=== PATIENT | female | born 1975 | race Caucasian/White ===

== ENCOUNTER 2021-03-02 15:15 | Emergency (ER) | payer MEDICAID ==
[~2021-03-02] VITALS: Ht 154.9 cm; Wt 83.5 kg
[~2021-03-02 15:15] MED LIST: ALB0.5UD IH; ARIP30TA7 PO; CLON-528 PO; CYAN1TAB41 PO; FAMO-1 PO; HAL5T PO; IBUP-1984 PO; LEVO75TA57 PO; LITH300C43 PO; NORG1TAB77 PO; OSC500T PO
--- NOTE | 2021-03-02 15:58 | NUR ---
PT DENIES SUICIDIAL IDEATION, REPORTS HEARING VOICES THAT TELL HER "TO START FIRES, BUT I DONT WANT ANOTHER WHALEN FIRE, BUT I GRABBED A CIGARETTE AND I DID MEAN THINGS." SHE IS RAMBLING, TANGENTIAL. SHE DENIES HOMICIDAL IDEATION ALSO. SHE STATES HER VOICES HAVE BEEN WORSE "FOR A FEW DAYS." SHE IS COOPERATIVE, ROCKING BACK AND FORTH IN THE ROOM. BELONGINGS SECURED OUTSIDE ROOM, ALL CLOTHES OFF AND PT CHANGED TO GREEN SCRUBS.
[2021-03-02 16:00] LABS: BASOPHILS # (AUTO) 0.1 X10'3 (0-0.2); BASOPHILS % (AUTO) 1.1 % (0-1); EOSINOPHILS # (AUTO) 0.6 X10'3 (0-0.9); HEMATOCRIT 38.6 % (35.0-45.0); HEMOGLOBIN 12.6 g/dl (12.0-16.0); LYMPHOCYTES # (AUTO) 2.2 X10'3 (1.1-4.8); LYMPHOCYTES % (AUTO) 21.9 % (21-51); MEAN CORPUSCULAR HEMOGLOBIN 28.4 PG (27.0-31.0); MEAN CORPUSCULAR HGB CONC 32.6 g/dL (33.0-36.5); MEAN CORPUSCULAR VOLUME 86.9 FL (78-98); MEAN PLATELET VOLUME 8.5 FL (7.4-10.4); MONOCYTES # (AUTO) 0.6 X10'3 (0-0.9); MONOCYTES % (AUTO) 5.5 % (2-12); NEUTROPHILS # (AUTO) 6.6 X10'3 (1.8-7.7); NEUTROPHILS % (AUTO) 65.5 % (42-75); PLATELET COUNT 287 X10'3 (140-440); RED BLOOD COUNT 4.44 X10'6 (4.20-5.60); WHITE BLOOD COUNT 10.1 X10'3 (4.5-11.0)
[2021-03-02 16:28] LABS: ALANINE AMINOTRANSFERASE 48 U/L (12-78); ALBUMIN 3.8 G/DL (3.4-5.0); ALBUMIN/GLOBULIN RATIO 1.1 (1.1-1.5); ALKALINE PHOSPHATASE 106 IU/L (46-116); ANION GAP 10 (8-16); ASPARTATE AMINO TRANSFERASE 30 U/L (10-37); BILIRUBIN,TOTAL 0.2 MG/DL (0.1-1.0); BLOOD UREA NITROGEN 14 MG/DL (7-18); BUN/CREATININE RATIO 17.7 (6.6-38.0); CALCIUM 9.3 MG/DL (8.5-10.1); CHLORIDE 106 MMOL/L (99-107); CREATININE 0.79 MG/DL (0.40-0.90); ETHANOL < 0.010 GM/DL (0.0-0.010); GLUCOSE 107 MG/DL (70-104); POTASSIUM 4.4 MMOL/L (3.5-5.1); SODIUM 142 MMOL/L (135-145); TOTAL CARBON DIOXIDE 25.6 MMOL/L (24-32); TOTAL PROTEIN 7.2 G/DL (6.4-8.2); eGFR 79 ML/MIN
[2021-03-02] MEDS ORDERED: CLOZ100T21 PO (16:28)
[2021-03-02] MEDS ORDERED: BENZ1TAB7 PO (16:28)
[2021-03-02] MEDS ORDERED: LORA-268 PO (16:28)
[2021-03-02] MEDS ORDERED: CALC-102 PO (16:28)
[2021-03-02] MEDS ORDERED: ROPI2TAB7 PO (16:28)
[2021-03-02] MEDS ORDERED: CLOZ200T PO (16:28)
[2021-03-02] MEDS ORDERED: OMEP40CA13 PO (16:28)
[2021-03-02] MEDS ORDERED: CARI6CAP PO (16:28)
[2021-03-02] MEDS ORDERED: LITH150C8 PO (16:31)
[2021-03-02] MEDS ORDERED: DOCU-267 PO (16:31)
[2021-03-02] MEDS ORDERED: INDLA60C PO (16:33)
[2021-03-02] MEDS ORDERED: MIRT30TA8 PO (16:33)
[2021-03-02] MEDS ORDERED: LACT1CAP65 PO (16:35)
[2021-03-02] MEDS ORDERED: LORazepam 1 MG tablet PO ONE (18:00)
[2021-03-02] MEDS ORDERED: ibuprofen tablet 400 MG TABLET PO PRN (18:20)
[2021-03-02] MEDS ORDERED: LORazepam 0.5 MG tablet PO PRN (18:20)
[2021-03-02 19:29] LABS: URINE HCG NEGATIVE (NEG)
[2021-03-02 19:39] LABS: URINE AMPHETAMINE SCREEN NEGATIVE (Neg); URINE BARBITUATE SCREEN NEGATIVE (Neg); URINE BENZODIAZEPINES SCREEN NEGATIVE (Neg); URINE CANNABINOID SCREEN NEGATIVE (Neg); URINE COCAINE SCREEN NEGATIVE (Neg); URINE METHADONE SCREEN NEGATIVE (Neg); URINE OPIATE SCREEN NEGATIVE (Neg); URINE PHENCYCLIDINE SCREEN NEGATIVE (Neg)
[2021-03-02] MEDS: clozapine 100mg tablet PO SCH ×2 (20:17→20:18)
[2021-03-02] MEDS: lactobacillus rhamnosus 10,000 MMU CELLS/CAPSULE PO SCH (20:19)
[2021-03-02] MEDS: calcium carbonate/vitamin D3 tablet PO SCH (20:20)
[2021-03-02] MEDS: lithium carbonate 150mg capsule PO SCH (20:21)
[2021-03-02] MEDS: lithium carbonate 300mg SR tablet (LithoBID) PO SCH (20:21)
[2021-03-02] MEDS: docusate sod 100mg capsule PO SCH (20:22)
[2021-03-02] MEDS: benztropine 1mg tablet PO SCH (20:22)
[2021-03-02] MEDS: ROPINIRole 1mg tablet PO SCH (20:23)
[2021-03-02] MEDS: mirtazapine 15mg tablet PO SCH (20:24)
--- NOTE | 2021-03-02 21:08 | NUR ---
pt will require urinalysis and covid result and tsh level for placement per [facility]. spoke with ezra boss regarding this requirement and received verbal order for all. orders placed as received
--- NOTE | 2021-03-02 21:36 | NUR ---
during bedside 1:1 assessment, pt denies any suicidal or homicidal ideation. reports delusions and one "evil" voice x4 days. has hx of schizophrenia and states the voices "have been good for 4-5 months" and suddenly one voice came back. states she was at a store and was using a 1/2 left cigarette from a previous person and the voice became angry and told her she shouldnt have taken the leftover cigarette. pt reports she has been trying to "fight" the voice and keep it away but is having difficulty. reports being medication compliant. is calm and cooperative with staff, follows all directions. reports the voice does NOT tell her to hurt herself or others.
[2021-03-02 22:00] LABS: CLARITY,URINE SLIGHTLY CLOUDY (Clear); COLOR,URINE YELLOW (Yellow); GLUCOSE, URINE NEGATIVE (Neg); KETONES,URINE NEGATIVE (Neg); LEUKOCYTE ESTERASE ,URINE LARGE (Neg); NITRITES, URINE NEGATIVE (Neg); OCCULT BLOOD,URINE NEGATIVE (Neg); PROTEIN,URINE NEGATIVE (Neg); UROBILINOGEN,URINE 0.2 E.U/dL (0.2-1.0)
[2021-03-02 22:01] LABS: UA COLLECTION TYPE CLN CATCH MIDSTREAM
[2021-03-02 22:11] LABS: BACTERIA,URINE 3+ /HPF (Neg); RBC,URINE 0-2 /HPF (0-2); SQUAMOUS EPITHELIAL CELL,UR MANY /LPF (FEW)
--- NOTE | 2021-03-02 23:05 | NUR ---
PT APPEARS TO BE SLEEPING ON RIGHT SIDE. NO S/S ACUTE DISTRESS AT THIS TIME. RESPIRATIONS EVEN AND UNLABORED.
--- NOTE | 2021-03-03 07:18 | NUR ---
Resting with eyes closed, respirations normal.
[2021-03-03] MEDS ORDERED: levoTHYROXINE 75mcg tablet PO SCH (08:00)
[2021-03-03] MEDS ORDERED: pantoprazole 40mg Tablet.DR PO SCH (08:00)
[2021-03-03] MEDS ORDERED: propranolol LA 60 MG cap.SA.24H PO SCH (08:00)
[2021-03-03] MEDS ORDERED: CARIPRAZINE 1.5 MG CAPSULE PO SCH (08:00)
--- NOTE | 2021-03-03 08:30 | NUR ---
UA positive for uti, patient c/o bilat flank pain. Denies dysuria. Dr Clark made aware.
[2021-03-03] MEDS: docusate sod 100mg capsule PO SCH ×2 (08:53→19:23)
[2021-03-03] MEDS: calcium carbonate/vitamin D3 tablet PO SCH ×2 (08:53→20:00)
[2021-03-03] MEDS: lactobacillus rhamnosus 10,000 MMU CELLS/CAPSULE PO SCH ×2 (08:54→19:21)
[2021-03-03] MEDS: benztropine 1mg tablet PO SCH ×2 (09:00→19:21)
--- NOTE | 2021-03-03 09:13 | NUR ---
Declined her breakfast, asking how long she will be here. Made her aware she needed to be evaluated by [facility] and was agreeable to the plan.
[2021-03-03] MEDS: clozapine 100mg tablet PO SCH ×3 (09:27→19:24)
--- NOTE | 2021-03-03 11:14 | NUR ---
FAXED [facility]
--- NOTE | 2021-03-03 13:15 | NUR ---
Patient eating lunch. No distress observed. Continue to monitor.
--- NOTE | 2021-03-03 14:33 | NUR ---
Patient ambulatory to BR, steady gait. No distress observed. Continue to monitor.
--- NOTE | 2021-03-03 15:40 | NUR ---
Patient asked RN to read her 5150 to her which RN did. Patient appears childlike. RN does not see a diagnosis of developmental delay, but she comes across like developmentally delayed. Patient didn't like that it has the part where she threatened to blow up the [place] [employer] [place]. RN asked patient if she said that. Patient stated she had but she didn't mean it. Continue to monitor.
--- NOTE | 2021-03-03 17:26 | NUR ---
RN collected Covid test and sent to lab. [facility] called and got report for possible admission. Patient tolerated well. Continue to monitor.
[2021-03-03] MEDS: ROPINIRole 1mg tablet PO SCH (19:21)
[2021-03-03] MEDS: mirtazapine 15mg tablet PO SCH (19:22)
[2021-03-03] MEDS: lithium carbonate 300mg SR tablet (LithoBID) PO SCH (19:22)
[2021-03-03] MEDS: lithium carbonate 150mg capsule PO SCH (19:23)
--- NOTE | 2021-03-03 19:31 | NUR ---
PT ACCEPTED AT [facility] AT 1745 BY MERRICK BACA.
[2021-03-03 20:15] VITALS: BP 104/76
== END 2021-03-03 20:10 ==
LOC: ER 15:16
DX: F29 Unspecified psychosis not due to a substance or known physiological condition (principal); Z20.822 Contact with and (suspected) exposure to COVID-19; F31.9 Bipolar disorder, unspecified; F17.200 Nicotine dependence, unspecified, uncomplicated; Z88.0 Allergy status to penicillin; Z88.8 Allergy status to other drugs, medicaments and biological substances; Z79.899 Other long term (current) drug therapy
CPT/HCPCS: 36415; 80053; 80178; 80305; 80320; 81001; 81025; 84443; 85025; 87635; 99285; C9803